=== PATIENT | female | born 1960 | race Caucasian/White ===

== ENCOUNTER → 2016-11-17 | Outpatient (CLI) | payer OTHER | LOC: FIMAGING 14:49 | PROVIDERS: ATTEND Internal Medicine | DX: R92.8 Other abnormal and inconclusive findings on diagnostic imaging of breast (principal) | CPT/HCPCS: G0206 ==

== ENCOUNTER 2017-08-08 13:30 | Observation (INO) | payer OTHER ==
--- NOTE | 2017-08-07 15:21 | PDHPUP ---
History & Physical Update H&P update statement: This history and physical update is based on an assessment of the patient which was completed after admission or registration (within 24 hours), but prior to the surgery/procedure. H&P update: H&P reviewed & patient examined, no change in patient's condition since H&P completed
[2017-08-08] MEDS ORDERED: DEXAMETHASONE 10 MG/ML VIAL IVP ONE (14:16)
[2017-08-08] MEDS ORDERED: CLINDAMYCIN 900 MG/DEXTROSE 50 ML IV ONE (14:16)
[2017-08-08] MEDS ORDERED: LIDOCAINE 1% 2 ML INJ ID PRN (14:17)
[2017-08-08] MEDS ORDERED: LR 1,000 ML IV ONE (14:17)
--- NOTE | 2017-08-08 14:32 | PDHPUP ---
History & Physical Update H&P update statement: This history and physical update is based on an assessment of the patient which was completed after admission or registration (within 24 hours), but prior to the surgery/procedure. H&P update: no change in patient's condition since H&P completed
[2017-08-08] MEDS ORDERED: BUPIVACAINE 0.25% 30 ML SDV ONE (14:40)
[2017-08-08] MEDS ORDERED: PROPOFOL/EMULSION 500 MG/50 ML BOTTLE IV ONE (15:20)
[2017-08-08] MEDS ORDERED: fentaNYL 250 MCG/5 ML INJ ONE (15:20)
[2017-08-08] MEDS ORDERED: MIDAZOLAM 2 MG/2 ML VIAL IVP ONE (15:24)
--- NOTE | 2017-08-08 15:27 | PDANEPAE ---
ANE History of Present Illness 57 year old woman for tonsillectomy. History of sleep apnea, morbid obesity and migraine h.a. ANE Past Medical History - Cardiovascular History Hx Hypertension: No Hx Arrhythmias: No Hx Chest Pain: No Hx Coronary Artery / Peripheral Vascular Disease: No Hx CHF / Valvular Disease: No Hx Palpitations: No - Pulmonary History Hx COPD: No Hx Asthma/Reactive Airway Disease: No Hx Recent Upper Respiratory Infection: No Hx Oxygen in Use at Home: No Hx Sleep Apnea: Yes Sleep Apnea Screening Result - Last Documented: Positive Pulmonary History Comment: ROSA no 02 - Neurologic History Hx Cerebrovascular Accident: No Hx Seizures: No Hx Dementia: No - Endocrine History Hx Diabetes: No - Renal History Hx Renal Disorders: No - Liver History Hx Hepatic Disorders: No - Neurological & Psychiatric Hx Hx Neurological and Psychiatric Disorders: No - Cancer History Hx Cancer: No - Congenital Disorder History Hx Congenital Disorders: No - GI History Hx Gastrointestinal Disorders: Yes Gastrointestinal History Comment: gerd,reflux - Other Health History Other Health History: none - Chronic Pain History Chronic Pain: Yes (lower back) - Surgical History Prior Surgeries: carol taylor 06/22/17. 2012 right knee replacement. breast marker ANE Review of Systems Review of Systems: - Exercise capacity METS (RN): 4 METS ANE Patient History - Allergies Allergies/Adverse Reactions: amoxicillin Allergy (Intermediate, Verified 07/24/17 15:51) Rash - Home Medications Home Medications: Calcium 07/24/17 [Last Taken 08/02/17] Folic Acid 07/24/17 [Last Taken 08/02/17] Herbals/Supplements -Info Only 07/24/17 [Last Taken 08/02/17] Levothyroxine 07/24/17 [Last Taken 08/08/17 10:00] Magnesium 07/24/17 [Last Taken 08/02/17] Potassium Gluconate 07/24/17 [Last Taken 08/02/17] Sumatriptan 07/24/17 [Last Taken 07/25/17] Vitamin C 07/24/17 [Last Taken 08/02/17] - NPO status NPO Since - Liquids (Date): 08/07/17 NPO Since - Liquids (Time): 23:55 NPO Since - Solids (Date): 08/07/17 NPO Since - Solids (Time): 23:00 - Smoking Hx Smoking Status: Never smoked - Family Anes Hx Family Hx Anesthesia Complications: none ANE Labs/Vital Signs - Vital Signs Blood Pressure: 117/76 Heart Rate: 93 Respiratory Rate: 14 O2 Sat (%): 94 Height: 160.02 cm Weight: 117.934 kg ANE Physical Exam - Airway Neck exam: FROM Mallampati Score: Class 2 - Pulmonary Pulmonary: no respiratory distress - Cardiovascular Cardiovascular: regular rate and rhythym - ASA Status ASA Status: III
[2017-08-08] MEDS ORDERED: MIDAZOLAM 2 MG/2 ML VIAL ONE (15:32)
[2017-08-08] MEDS ORDERED: ACETAMINOPHEN 500 MG TAB PO PRN (16:18)
[2017-08-08] MEDS ORDERED: HYDROCODONE/APAP 5/325 TAB PO PRN (16:18)
[2017-08-08] MEDS ORDERED: PHENYLEPHRINE HCL 100 MCG/ML SYR IVP PRN (16:18)
[2017-08-08] MEDS ORDERED: OXYCODONE/APAP 5/325 TAB PO PRN (16:18)
[2017-08-08] MEDS ORDERED: fentaNYL 100 MCG/2 ML INJ IVP PRN (16:18)
[2017-08-08] MEDS ORDERED: LABETALOL HCL 5 MG/ML 20 ML MDV IVP PRN (16:18)
[2017-08-08] MEDS ORDERED: ONDANSETRON 4 MG/2 ML VIAL IVP PRN (16:18)
[2017-08-08] MEDS ORDERED: METOCLOPRAMIDE 10 MG/2 ML VIAL IVP PRN (16:18)
[2017-08-08] MEDS ORDERED: NALOXONE HCL 0.4 MG/ML INJ IVP PRN (16:18)
[2017-08-08] MEDS ORDERED: ALBUTEROL 3 ML DEYVIAL IH PRN (16:18)
[2017-08-08] MEDS ORDERED: MEPERIDINE 25 MG/ML SYR IVP PRN (16:18)
[2017-08-08] MEDS ORDERED: LR 500 ML IV PRN (16:18)
[2017-08-08] MEDS ORDERED: PROMETHAZINE HCL 25 MG/ML INJ IVP PRN (16:18)
--- NOTE | 2017-08-08 16:51 | POSTANESTH ---
Post Anesthetic Evaluation Cardiovascular Status: Normal, Stable Respiratory Status: Normal, Stable Level of Consciousness/Mental Status: Can Participate in Eval Pain Control: Adequate, Prn Tx Ordered Nausea/Vomiting Control: Adequate, Prn Tx Ordered Complications Possibly Related to Anesthesia: None Noted
[2017-08-08] MEDS ORDERED: D5W LR 1,000 ML IV SCH (17:00)
--- NOTE | 2017-08-08 18:27 | GOP ---
[f rep st] OPERATIVE REPORT DATE OF OPERATION: 08/08/2017 SURGEON: Abdi Bailey MD ANESTHESIA: General. PREOPERATIVE DIAGNOSIS: 1. Tonsillar hyperplasia. 2. Snoring. POSTOPERATIVE DIAGNOSIS: 1. Tonsillar hyperplasia. 2. Snoring. PROCEDURE PERFORMED: Tonsillectomy. FINDINGS: Large tonsils bilaterally. A lot of scar tissue on tonsillar capsule superiorly. Some gr een concretions of the debris within the inferior aspect of the right tonsil. A mid tonsillar fossa arteriole was oversewn on both the left and the right side. SPECIMENS: Tonsils. ESTIMATED BLOOD LOSS: 25 mL. INDICATIONS: The patient is a 57-year-old woman with obstructive sleep apnea syndrome. She is has v papito large tonsils and complains of snoring and some feeling of fullness in the throat due to the size of the tonsils. She presents for tonsillectomy in hopes of improving these symptoms and with the po ssibility of some improvement in her sleep apnea, although she does understand that this will not cur e her sleep apnea. DESCRIPTION OF PROCEDURE: The patient was taken the OR and positively identified. Placed on monitor s, and general endotracheal anesthesia was induced. The table was then turned 90 degrees. She was p laced in the Amie position with a shoulder roll and head drape. The Sky mouth gag was used to visu meggan the oropharynx. She was placed in suspension. The peritonsillar tissues were infiltrated on e ither side with 2 mL of 0.25% Marcaine with 1:200,000 of epinephrine, with care being taken to not in ject it intravascularly. At this point, the Coblation wand was used to incise the mucosa along the a nterior tonsillar pillar on the right side. Blunt dissection was carried, leaving portions of the to nsillar capsule where possible, although the patient did have a lot of scar tissue on the tonsillar f ossae bilaterally making this quite difficult. Bleeding vessels were cauterized as they were counter ed. Inferiorly, some green tonsil stones came out of the inferior tonsillar tissue as I was performi ng the intracapsular tonsillectomy inferiorly. This was not done very well superiorly due to the cassidy unt of scarring. There was some oozing from a small arteriole in the right mid tonsillar fossa. Thi s was oversewn with a [id number] 3-0 chromic suture with good hemostasis. Attention was now turned to the left side, and the same procedure was done in the same fashion. In t his case, I did not find any of the tonsil stones inferiorly, but there was an arteriole that was usi ng in the mid fossa. This was easily cauterized and then I went ahead and oversewed it with a figure -of-eight 3-0 chromic stitch. At this point, a further 2 mL of local anesthetic was carefully infilt rated onto either side. Some of this was just sprayed topically over the tonsillar fossa. The gag w as released for several minutes and reopened. There was no signs of any bleeding, and the case was t erminated. The anesthetic was discontinued and the patient was extubated. She tolerated procedure w ell. COMPLICATIONS: None. /[id number]/MODL
[2017-08-08] MEDS ORDERED: oxyCODONE ORAL SOLUTION 10 MG/0.5 ML UDSYR PO PRN (19:46)
[2017-08-08] MEDS ORDERED: ACETAMINOPHEN 650 MG/20.3 ML UDCUP PO PRN (20:04)
[2017-08-08] MEDS ORDERED: SUMAtriptan 50 MG TAB PO PRN (22:15)
[2017-08-08] MEDS: DEXAMETHASONE 4 MG/ML VIAL IVP SCH (22:24)
[2017-08-09] MEDS: DEXAMETHASONE 4 MG/ML VIAL IVP SCH (05:18)
[2017-08-09] MEDS ORDERED: LEVOTHYROXINE 100 MCG TAB PO SCH (06:00)
[2017-08-09 09:11] VITALS: BP 158/94; PULSE 107; RESP 18; TEMP 97.7; O2SAT 93
--- NOTE | 2017-08-09 09:34 | SOAPPROG ---
SOAP Progress Note Assessment/Plan: pt s/p tonisllectomy. She is doing well. Breathing comfortably. tolerating soft foods. OC- eschar, no blood Plan: pt s/p tonsileectomy. Discussed post op course. HAs meds. F/u 2 weeks. 08/09/17 09:32 Objective: Vital Signs Temp Pulse Resp BP Pulse Ox 36.5 C 107 H 18 158/94 H 93 08/09/17 08:00 08/09/17 08:00 08/09/17 08:00 08/09/17 08:00 08/09/17 08:00 08/08/17 08/09/17 08/10/17 05:59 05:59 05:59 Intake Total 2425 Output Total 2320 Balance 105 - Pending Discharge Pending Discharge Within 24 Hours: Yes Pending Discharge Date: 08/10/17 Pending Discharge Time: 11:00 ICD10 Worksheet Patient Problems: Problems Problem Status Onset Thyroid cancer Acute - ICD10 Problem Qualifiers (1) Thyroid cancer
== END 2017-08-09 10:48 | disposition home or self-care (01) ==
LOC: F3N 13:56 → F3E 17:25
PROVIDERS: ADMIT Otolaryngology; ATTEND Otolaryngology
PROC: 0CTPXZZ Resection of Tonsils, External Approach (ICD-10-PCS; principal; 2017-08-08 15:15)
DX: J35.01 Chronic tonsillitis (principal); G47.33 Obstructive sleep apnea (adult) (pediatric); R06.83 Snoring; E66.01 Morbid (severe) obesity due to excess calories; Z68.42 Body mass index [BMI] 45.0-49.9, adult; Z90.49 Acquired absence of other specified parts of digestive tract; Z96.651 Presence of right artificial knee joint
CPT/HCPCS: 42826; G0378; J0171; J1100; J2250; J2704; J3010

== ENCOUNTER → 2017-11-21 | Outpatient (CLI) | payer OTHER | LOC: FIMAGING 16:08 | PROVIDERS: ATTEND Internal Medicine | DX: Z12.31 Encounter for screening mammogram for malignant neoplasm of breast (principal); Z80.3 Family history of malignant neoplasm of breast ==

== ENCOUNTER → 2018-07-22 | Outpatient (CLI) | payer OTHER | LOC: FIMAGING 10:47 | PROVIDERS: ATTEND Internal Medicine | DX: Z12.31 Encounter for screening mammogram for malignant neoplasm of breast (principal) ==